=== PATIENT | male | born 1950 | race Caucasian/White ===

== ENCOUNTER 2019-04-19 19:00 | Emergency (ER) | payer MEDICARE, OTHER ==
[~2019-04-19] VITALS: Ht 177.8 cm; Wt 117.0 kg
[2019-04-19 19:50] VITALS: BP_SYST 135
--- NOTE | 2019-04-19 20:08 | NUR ---
Patient to ER bed 3 to gown for evaluation. Side rails up.
--- NOTE | 2019-04-19 20:08 | NUR ---
KELLY Fermin at bedside examining patient.
--- NOTE | 2019-04-19 20:08 | NUR ---
Pt brought in by [facility]. Pt awake, alert, oriented x4. Pt states he was transferring from wheelchair to shower chair when the shower chair collapsed, causing him to fall. Pt fell/slid unto floor from shower chair, hitting head on nearby bathroom wall. Pt states he has pain to left hip and general body aches. Pt denies KO. Pt Denies chest pain, nausea, vomiting, diarrhea, shortness of breath, any other medical complaint at this time. Pt resting in ED bed after being transferred via 6 person transfer for safety. Pt VSS
[2019-04-19 21:35] VITALS: BP_SYST 155
--- NOTE | 2019-04-19 21:35 | NUR ---
Patient given written and verbal discharge instructions and verbalizes understanding. ER MD discussed with patient the results and treatment provided. Patient in stable condition. ID arm band removed. No IV No RX given. Patient educated on pain management and to follow up with PMD. Pain Scale 0/10. Opportunity for questions provided and answered. Medication side effect fact sheet provided.
== END 2019-04-19 21:35 | disposition home or self-care (01) ==
LOC: SED 19:00
DX: S00.03XA Contusion of scalp, initial encounter (principal); M25.552 Pain in left hip; W07.XXXA Fall from chair, initial encounter; Y93.89 Activity, other specified; Y92.89 Other specified places as the place of occurrence of the external cause; Y99.8 Other external cause status
CPT/HCPCS: 73502; 99283